=== PATIENT | male | born 1960 | race Caucasian/White ===

== ENCOUNTER 2020-08-27 17:11 | Emergency (ER) | payer MEDICAID ==
[~2020-08-27] VITALS: Ht 170.2 cm; Wt 100.7 kg
--- NOTE | 2020-08-27 17:30 | NUR ---
PT [facility] BED 01 C/O MULTIPLE EPISODE OF BLOOD IN STOOL SINCE THIS MORNING. 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 DENIES CHEST PAIN, STABLE VITALS. AWAITING MD MONREAL.
--- NOTE | 2020-08-27 17:41 | NUR ---
CAROLINE CINTRON AT BEDSIDE FOR EVAL.
--- NOTE | 2020-08-27 17:50 | NUR ---
IV LINE STARTED BLOOD DRAWN AND SENT TO LAB.
[2020-08-27 17:58] LABS: MEAN CORPUSCULAR VOLUME 82 fL (80-96); PLATELET COUNT (AUTO) 127 /CMM (150-450); WHITE BLOOD COUNT (AUTO) 10.4 K/uL (4.3-11.0)
[2020-08-27 18:00] LABS: BASOPHILS # (AUTO) 0.1 /CMM (0.0-0.2); BASOPHILS % (AUTO) 0.5 % (0.0-2.0); EOSINOPHILS % (AUTO) 1.7 % (0.0-6.0); HEMATOCRIT 47 % (39-51); HEMOGLOBIN 16.4 g/dL (13.5-17.5); LYMPHOCYTES # (AUTO) 2.7 /CMM (0.8-4.8); LYMPHOCYTES % (AUTO) 25.6 % (20.0-44.0); MEAN CORPUSCULAR HGB CONC 35 g/dl (31.0-36.0); MONOCYTES # (AUTO) 0.8 /CMM (0.1-1.30); MONOCYTES % (AUTO) 7.6 % (2.0-12.0); NEUTROPHILS # (AUTO) 6.7 /CMM (1.8-8.9); NEUTROPHILS % (AUTO) 64.6 % (43.0-81.0); RED BLOOD CELL COUNT(AUTO) 5.72 MIL/uL (4.5-6.0)
[2020-08-27] MEDS ORDERED: IV NS 0.9% 1,000 ML BAG IV ONE (18:00)
[2020-08-27 18:02] LABS: OCCULT BLOOD STOOL NEGATIVE (NEGATIVE)
[2020-08-27 18:10] LABS: ALBUMIN 3.9 g/dL (3.4-5.0); BILIRUBIN,DIRECT 0.1 mg/dL (0.0-0.2); BILIRUBIN,TOTAL 0.4 mg/dL (0.2-1.0); CALCIUM, SERUM 8.5 mg/dL (8.5-10.1); POTASSIUM 3.9 mmol/L (3.5-5.1); TOTAL PROTEIN, SERUM 7.6 g/dL (6.4-8.2)
[2020-08-27] MEDS ORDERED: IV NS 0.9% 250 ML IV ONE (18:41)
[2020-08-27] MEDS ORDERED: IOHEXOL-300 100 ML VIAL IV ONE (18:41)
[2020-08-27] MEDS ORDERED: CT SWABBABLE VALVE TRANS SET 1 EA INFUS.SET MC ONE (18:41)
[2020-08-27] MEDS ORDERED: ACET-2605 PO (19:50)
[2020-08-27 20:14] LABS: BILIRUBIN,URINE Negative (NEGATIVE); COLOR,URINE YELLOW (YELLOW); LEUKOCYTE ESTERASE ,URINE Trace (NEGATIVE); NITRITE, URINE Positive (NEGATIVE); PH,URINE 5.5 (5.0-8.0); PROTEIN,URINE Negative (NEGATIVE); UGLUCOSE Negative (NEGATIVE); UROBILINOGEN,URINE 0.2 EU/dL (0.2)
[2020-08-27 20:18] LABS: BACTERIA,URINE 2+ /HPF (None Seen); RBC,URINE NONE SEEN /HPF (0-2); SQUAMOUS EPITHELIAL CELL,UR Few /HPF (None Seen)
[2020-08-27] MEDS ORDERED: CEPH500T PO (20:35)
--- NOTE | 2020-08-27 20:54 | NUR ---
Patient discharged to home in stable condition. Written and verbal after care instructions given. Patient verbalizes understanding of instruction. IV removed. Catheter intact and site benign. Pressure and 4x4 applied to site. No bleeding noted.
[2020-08-27 20:56] VITALS: BP 155/80
== END 2020-08-27 20:56 | disposition home or self-care (01) ==
LOC: ER 17:25
DX: K92.1 Melena (principal); N39.0 Urinary tract infection, site not specified; I10 Essential (primary) hypertension; I25.2 Old myocardial infarction; E11.9 Type 2 diabetes mellitus without complications; Z79.899 Other long term (current) drug therapy
CPT/HCPCS: 36415; 74177; 80048; 80076; 81001; 82272; 83690; 85025; 85730; 96360; 99285; J7030; J7050; Q9967; 87086-TC

== ENCOUNTER 2022-03-04 14:11 | Emergency (ER) | payer MEDICAID ==
[~2022-03-04] VITALS: Ht 170.2 cm; Wt 97.5 kg
[~2022-03-04 14:11] MED LIST: ACET-2605 PO; CEPH500T PO
[2022-03-04 14:43] VITALS: BP 143/85
[2022-03-04] MEDS ORDERED: NAPR-1192 PO (15:49)
== END 2022-03-04 15:58 | disposition home or self-care (01) ==
LOC: ER 14:18
DX: M70.21 Olecranon bursitis, right elbow (principal); M79.89 Other specified soft tissue disorders; I10 Essential (primary) hypertension; I25.2 Old myocardial infarction; E11.9 Type 2 diabetes mellitus without complications; Z79.899 Other long term (current) drug therapy; Y93.89 Activity, other specified
CPT/HCPCS: 73080-TC